=== PATIENT | female | born 1960 | race Two or more races ===

== ENCOUNTER 2018-01-10 16:20 | Emergency (ER) | payer MEDICAID ==
[~2018-01-10] VITALS: Ht 167.6 cm; Wt 77.1 kg
[~2018-01-10 16:20] MED LIST: ESCI20TA PO; KLO2 PO; OXYC-130 PO
[2018-01-10 16:31] VITALS: BP_SYST 120
[2018-01-10] MEDS ORDERED: IPRATROPIUM/ALBUTEROL SULFATE 3 ML AMPUL.NEB INH ONE (17:15)
[2018-01-10 18:35] VITALS: BP_SYST 120
== END 2018-01-10 18:35 | disposition home or self-care (01) ==
LOC: SED 16:20
DX: J20.9 Acute bronchitis, unspecified (principal); F41.9 Anxiety disorder, unspecified; F32.9 Major depressive disorder, single episode, unspecified; Z87.891 Personal history of nicotine dependence; Z90.710 Acquired absence of both cervix and uterus; Z88.5 Allergy status to narcotic agent; Z88.8 Allergy status to other drugs, medicaments and biological substances; Z79.899 Other long term (current) drug therapy
CPT/HCPCS: 71045; 94640; 99283; J7620